=== PATIENT | female | born 1970 | race Caucasian/White ===

== ENCOUNTER 2017-10-12 13:23 | Outpatient (CLI) | payer OTHER | END 2017-10-12 13:24 | disposition home or self-care (01) | LOC: BICULT 13:23 | PROVIDERS: ATTEND Urology | DX: N39.41 Urge incontinence (principal); Z87.440 Personal history of urinary (tract) infections | CPT/HCPCS: 76770 ==

== ENCOUNTER 2018-03-12 04:33 | Emergency (ER) | payer OTHER ==
[2018-03-12] MEDS ORDERED: HYDROcodone/Acetaminophen 5/325 mg Tablet ONE ×2 (04:57→05:24)
--- NOTE | 2018-03-12 07:49 | RAD ---
RIGHT SHOULDER 3 VIEWS: HISTORY: Pain. COMPARISON: None. FINDINGS: Nondisplaced clavicular fracture at the acromioclavicular joint. This occurs approximately 5 mm from the distal tip. Here is minimal displacement. Visualized ribs are unremarkable. IMPRESSION: Minimally displaced distal clavicular fracture. POS: [facility]
--- NOTE | 2018-03-12 07:52 | RAD ---
RIGHT FOREARM 2 VIEWS: HISTORY: Fall. Pain. COMPARISON: None. FINDINGS: Very minimally comminuted mid shaft ulna fracture with shaft width radial displacement of the dis dea fragment. The radius appears to be intact. Proximal radial ulnar joint is intact. There is, ho wever, a small joint effusion. IMPRESSION: One-half shaft width medial lateral displacement of the mid shaft distal ulnar diaphyseal fracture. POS: [facility]
--- NOTE | 2018-03-12 07:52 | RAD ---
RIGHT WRIST 3 VIEWS: Date: 03/12/18 HISTORY: Pain after fall. COMPARISON: None. FINDINGS: Subtle widening of scapholunate interval. No acute displaced fracture or malalignment. IMPRESSION: 1. No acute displaced fracture or malalignment. 2. Subtle widening scapholunate interval may be sequelae of prior scapholunate ligament injury. POS: [facility]
== END 2018-03-12 05:53 | disposition home or self-care (01) ==
LOC: ERS 04:33
DX: S52.201A Unspecified fracture of shaft of right ulna, initial encounter for closed fracture (principal); S42.031A Displaced fracture of lateral end of right clavicle, initial encounter for closed fracture; S00.03XA Contusion of scalp, initial encounter; F17.210 Nicotine dependence, cigarettes, uncomplicated; E11.9 Type 2 diabetes mellitus without complications; I10 Essential (primary) hypertension; G40.909 Epilepsy, unspecified, not intractable, without status epilepticus; Z71.6 Tobacco abuse counseling; W22.8XXA Striking against or struck by other objects, initial encounter
CPT/HCPCS: 25530; 99406

== ENCOUNTER 2019-08-17 16:28 | Outpatient (CLI) | payer OTHER ==
--- NOTE | 2019-08-17 16:45 | RAD ---
EXAM: CHEST TWO VIEWS: 08/17/19 HISTORY: Acute bronchitis, cough. FINDINGS: Heart size is within normal limits. No confluent pneumonia, overt edema or pleural effusion. Mild bi apical pleural thickening. IMPRESSION: No significant acute intrathoracic disease. No evidence for pneumonia. POS: [facility]
== END 2019-08-17 16:29 | disposition home or self-care (01) ==
LOC: SCSRAD 16:28
PROVIDERS: ATTEND Family Medicine
DX: J20.9 Acute bronchitis, unspecified (principal)
CPT/HCPCS: 71046

== ENCOUNTER 2022-01-08 08:59 | Outpatient (CLI) | payer OTHER | END 2022-01-08 09:00 | disposition home or self-care (01) | LOC: RAD 08:59 | DX: R06.2 Wheezing (principal) | CPT/HCPCS: 71046 ==

== ENCOUNTER 2022-11-18 11:11 | Outpatient (CLI) | payer OTHER | END 2022-11-18 11:12 | disposition home or self-care (01) | LOC: BICMAMMO 11:11 | PROVIDERS: ATTEND Family Medicine | DX: Z12.31 Encounter for screening mammogram for malignant neoplasm of breast (principal) | CPT/HCPCS: 77067 ==

== ENCOUNTER 2023-01-09 08:20 | Outpatient (CLI) | payer OTHER | END 2023-01-09 08:21 | disposition home or self-care (01) | LOC: CT 08:20 | PROVIDERS: ATTEND Family Medicine | DX: Z12.2 Encounter for screening for malignant neoplasm of respiratory organs (principal); F17.219 Nicotine dependence, cigarettes, with unspecified nicotine-induced disorders; J98.4 Other disorders of lung | CPT/HCPCS: 71271 ==

== ENCOUNTER 2023-06-04 09:10 | Outpatient (CLI) | payer OTHER | END 2023-06-04 09:11 | disposition home or self-care (01) | LOC: RAD 09:10 → BICRAD 09:11 | PROVIDERS: ATTEND Internal Medicine Critical Care Medicine | DX: R06.00 Dyspnea, unspecified (principal); J98.4 Other disorders of lung | CPT/HCPCS: 71046 ==

== ENCOUNTER 2023-09-30 10:28 | Outpatient (CLI) | payer OTHER | END 2023-09-30 10:29 | disposition home or self-care (01) | LOC: RAD 10:28 | PROVIDERS: ATTEND Family Medicine | DX: M25.521 Pain in right elbow (principal) ==

== ENCOUNTER 2024-02-11 14:49 | Outpatient (CLI) | payer OTHER | END 2024-02-11 14:50 | disposition home or self-care (01) | LOC: RAD 14:49 | PROVIDERS: ATTEND Internal Medicine Critical Care Medicine | DX: R06.00 Dyspnea, unspecified (principal) | CPT/HCPCS: 71046 ==

== ENCOUNTER 2025-02-23 10:36 | Outpatient (CLI) | payer MEDICAID | END 2025-02-23 10:37 | disposition home or self-care (01) | LOC: BICMAMMO 10:36 | PROVIDERS: ATTEND Family Medicine | DX: Z12.31 Encounter for screening mammogram for malignant neoplasm of breast (principal); Z80.3 Family history of malignant neoplasm of breast; N64.89 Other specified disorders of breast | CPT/HCPCS: 77067 ==

== ENCOUNTER 2025-03-15 10:21 | Outpatient (CLI) | payer MEDICAID | END 2025-03-15 10:22 | disposition home or self-care (01) | LOC: ULT 10:21 | PROVIDERS: ATTEND Family Medicine | DX: R79.89 Other specified abnormal findings of blood chemistry (principal) | CPT/HCPCS: 76700 ==